=== PATIENT | female | born 1995 | race Caucasian/White ===

== ENCOUNTER 2017-05-06 11:47 | Day surgery (SDC) | payer OTHER ==
[2017-05-05 18:43] VITALS: BMI 62.4
[2017-05-06] VITALS (11 sets, daily range): BP systolic 114–137; BP diastolic 46–74; PULSE 86–107; RESP 13–19; Ht 162.6 cm; Wt 76.5 kg
[~2017-05-06] VITALS: Ht 162.6 cm; Wt 76.5 kg
[~2017-05-06 11:47] MED LIST: ACETAMINOPHEN 1000 MG/100 ML IVPB ONE; CEFAZOLIN 1 GM INJ ONE
[2017-05-06] MEDS ORDERED: DEXAMETHASONE 4 MG/ML 1 ML INJ IV SCH (14:00)
--- NOTE | 2017-05-06 14:28 | HPN ---
Date/Time of Note Date/Time of Note DATE: 05/06/17 TIME: 14:28 Interval H&P Admission Note Pt. seen H&P reviewed: No system changes JERRELL KENT MD May 06, 2017 14:28
[2017-05-06] MEDS ORDERED: PROPOFOL 20 ML ONE (15:53)
[2017-05-06] MEDS ORDERED: LIDOCAINE 2% (SDV) 5 ML INJ ONE (15:55)
[2017-05-06] MEDS ORDERED: FENTAnyl 50 MCG/ML VIAL ONE ×2 (15:56→16:41)
[2017-05-06] MEDS ORDERED: FENTAnyl 50 MCG/ML VIAL IV PRN ×3 (16:30)
[2017-05-06] MEDS ORDERED: DIPHENHYDRAMINE 50 MG INJ IV PRN (16:30)
[2017-05-06] MEDS ORDERED: HYDROmorphONE (0.2 MG/ML) 10ML SYG IV PRN ×3 (16:30)
[2017-05-06] MEDS ORDERED: LABETALOL HCL 20MG INJ IV PRN (16:30)
[2017-05-06] MEDS ORDERED: METOCLOPRAMIDE 10 MG INJ IV PRN (16:30)
[2017-05-06] MEDS ORDERED: EPHEDrine SULFATE 50 MG/5 ML SYG IV PRN (16:30)
[2017-05-06] MEDS ORDERED: ONDANSETRON 4 MG INJ IV PRN (16:30)
[2017-05-06] MEDS ORDERED: OXYCODONE/ACETAMINOPHEN (5/325) TAB PO PRN ×2 (16:30)
[2017-05-06] MEDS ORDERED: hydrALAzine 20 MG INJ IV PRN (16:30)
[2017-05-06] MEDS ORDERED: MEPERIDINE 25 MG INJ IV PRN (16:30)
[2017-05-06] MEDS ORDERED: ONDANSETRON 4 MG INJ ONE (16:41)
[2017-05-06] MEDS ORDERED: DEXAMETHASONE 4 MG/ML 1 ML INJ ONE (16:41)
[2017-05-06] MEDS ORDERED: SUGAMMADEX SODIUM 200 MG/2 ML VIAL IV ONE (16:48)
[2017-05-06] MEDS ORDERED: HYDROCODONE/APAP (5/325) TAB PO PRN (17:00)
--- NOTE | 2017-05-06 17:03 | OPR ---
Date/Time of Note Date/Time of Note DATE: 05/06/17 TIME: 17:01 Operative Report Procedure Date: May 06, 2017 Preoperative Diagnosis Chronic tonsillitis. Postoperative Diagnosis Same Operation Performed Tonsillectomy Surgeon see signature line Anesthesia Type: general Estimated Blood Loss: minimal Transfusion Required: no Specimens Tonsils Grafts/Implants: none Complications: no Pt Condition Post Procedure: stable Disposition: PACU Indications Recurrent infections and tonsil hypertrophy Operative\Procedure Findings Description of procedure: The patient was identified in the holding area. We had a discussion to confirm understanding of all indications risks benefits alternatives and postoperative care associated with the operation. The patient signed informed consent was taken to the operating room. The patient was laid supine on the operating room table and general anesthesia was achieved without difficulty. The face was draped in sterile fashion. A McIvor mouth gag was placed and used to retract the oral cavity open, taking care to avoid damage to the teeth. The oral cavity and pharynx were inspected and palpated to reveal symmetric hypertrophy. At this point the right palatine tonsil was grabbed superiorly with a curved Jaylene clamp. It was retracted medially and monopolar cautery was used to enter the peritonsillar space. Dissection of the tonsil commenced in a superior to inferior fashion until it was completely resected. Suction Bovie cautery was used for spot hemostasis. At this point, the contralateral tonsil was removed in the exact similar fashion. There was no significant bleeding or oozing. Copious irrigation and suctioning was performed. Secondary inspection revealed no bleeding or oozing. The patient was awakened, extubated and taken to the PACU in stable condition. Complications: None JERRELL KENT MD May 06, 2017 17:03
== END 2017-05-06 18:20 | disposition home or self-care (01) ==
LOC: SDS 11:47
PROVIDERS: ATTEND Otolaryngology
DX: J35.01 Chronic tonsillitis (principal)
CPT/HCPCS: 42826; 84703; 88304; J0131; J0690; J1100; J1170; J2405; J3010; Z7512; Z7610